=== PATIENT | female | born 1970 | race African-American/Black ===

== ENCOUNTER 2019-05-10 12:44 | Emergency (ER) | payer MEDICAID, OTHER ==
[~2019-05-10] VITALS: Ht 165.1 cm; Wt 104.0 kg
[2019-05-10] MEDS ORDERED: IBUPROFEN 600MG TABLET PO STA (13:42)
[2019-05-10 15:45] VITALS: BP 145/88
== END 2019-05-10 16:43 | disposition home or self-care (01) ==
LOC: ER 12:44
DX: S06.0X0A Concussion without loss of consciousness, initial encounter (principal); M54.5 Low back pain; R03.0 Elevated blood-pressure reading, without diagnosis of hypertension; V49.60XA Unspecified car occupant injured in collision with unspecified motor vehicles in traffic accident, initial encounter; Y93.89 Activity, other specified; Y92.410 Unspecified street and highway as the place of occurrence of the external cause
CPT/HCPCS: 99284